=== PATIENT | female | born 1955 ===

== ENCOUNTER 2017-02-04 17:15 | Emergency (ER) | payer MEDICAID, OTHER ==
[2017-02-04 17:24] VITALS: PULSE 82; O2SAT 98
--- NOTE | 2017-02-04 17:47 | C.PDOC ---
History Of Present Illness 61F c/o headache and "dizziness" for the last 5 days, constant for 3 days. dizziness she says is "spinning" sensation worse with getting up and walking. she has had similar sx in the past which she attributed to high BP. Time Seen by Provider: 02/04/17 17:39 Chief Complaint (Nursing): High Blood Pressure Past Medical History Vital Signs: Last Vital Signs Temp 98.7 F 02/04/17 19:07 Pulse 82 02/04/17 19:07 Resp 18 02/04/17 19:07 BP 128/73 02/04/17 19:07 Pulse Ox 98 02/04/17 19:07 - Medical History PMH: Hyperlipidemia - [facility] Procedures IRRIGATION OF EAR (07/13/14) Family History: States: Other Other Family History: nc - Social History Hx Tobacco Use: No Hx Alcohol Use: No Hx Substance Use: No - Immunization History Hx Tetanus Toxoid Vaccination: No Hx Influenza Vaccination: No Hx Pneumococcal Vaccination: No Review Of Systems Constitutional: Negative for: Fever, Chills, Weakness, Malaise Eyes: Negative for: Vision Change ENT: Positive for: Other (no hearing change) Cardiovascular: Negative for: Chest Pain Respiratory: Negative for: Cough, Shortness of Breath Gastrointestinal: Positive for: Nausea, Vomiting. Negative for: Abdominal Pain Genitourinary: Negative for: Dysuria Neurological: Positive for: Headache. Negative for: Weakness, Numbness, Change in Speech, Confusion, Seizures, Altered Mental Status Physical Exam - Physical Exam Appears: Well, Non-toxic, No Acute Distress Skin: Warm, Dry Head: Atraumatic Eye(s): bilateral: PERRL, EOMI Nose: No Epistaxis Oral Mucosa: Moist Tongue: No Swelling Neck: Normal ROM Cardiovascular: Rhythm Regular, No Murmur Respiratory: No Decreased Breath Sounds, No Accessory Muscle Use, No Rales, No Rhonchi, No Wheezing Gastrointestinal/Abdominal: Soft, No Tenderness Extremity: No Swelling Pulses: Left Radial: Normal, Right Radial: Normal Neurological/Psych: Oriented x3, Normal Cranial Nerves, No Cerebellar Signs, Normal Motor, Normal Sensation, Other (no focal deficits) Gait: Steady ED Course And Treatment - Laboratory Results Result Diagrams: 02/04/17 18:15 02/04/17 18:15 O2 Sat by Pulse Oximetry: 98 Medical Decision Making Medical Decision Makin disc w pmd Dr Hernandez who rec follow up with him in his office on 1851 pt resting quietly no distress. reports feeling much better. she is comfortable w plan for dc and close follow up on and will return if worse. cxr- nad ecg- nsr 78, nl axis, no acute ischemia PROCEDURE: CT HEAD WITHOUT CONTRAST. HISTORY: headache COMPARISON: None available. TECHNIQUE: Axial computed tomography images were obtained through the head/brain without intravenous contrast. Radiation dose: Total exam DLP = 885.31 mGy-cm. This CT exam was performed using one or more of the following dose reduction techniques: Automated exposure control, adjustment of the mA and/or kV according to patient size, and/or use of iterative reconstruction technique. FINDINGS: HEMORRHAGE: No intracranial hemorrhage. BRAIN: No mass effect or edema. No atrophy or chronic microvascular ischemic changes. VENTRICLES: Unremarkable. No hydrocephalus. CALVARIUM: Unremarkable. PARANASAL SINUSES: Unremarkable as visualized. No significant inflammatory changes. MASTOID AIR CELLS: Unremarkable as visualized. No inflammatory changes. OTHER FINDINGS: None. IMPRESSION: No evidence of acute intracranial hemorrhage or acute pathology in the brain. Disposition - Disposition Referrals: Romeo Hernandez MD [Staff Provider] - Disposition: HOME/ ROUTINE Disposition Time: 18:57 Condition: IMPROVED Additional Instructions: Please follow up with your doctor on Tuesday. Return to the ER for any worsening symptoms or for any other concerns. Prescriptions: Meclizine [Antivert] 12.5 mg PO Q12H PRN #12 tab PRN Reason: vertigo Instructions: Vertigo (ED) Forms: Gen Discharge Inst Kinyarwanda Print Language: MOSOTHO - Clinical Impression Clinical Impression: Vertigo, Headache Physician Patient Turnover Patient Signed Over To: Andrei Roy Handoff Comments: f/u wrkup results
[2017-02-04] MEDS ORDERED: DiphenhydrAMINE 50 mg/ml Inj IVP STA (18:11)
[2017-02-04] MEDS ORDERED: DiphenhydrAMINE 50 mg/ml Inj ONE (18:18)
[2017-02-04 18:19] LABS: BASO # 0.1 K/uL (0.0-0.2); BASO % 1.1 % (0.0-2.0); EOS # 0.3 K/uL (0.0-0.7); HEMATOCRIT 40.3 % (34.0-47.0); LYMPH # 3.7 K/uL (1.0-4.3); LYMPH % 30.3 % (20.0-40.0); MEAN CELL VOLUME 82.1 fL (81.0-99.0); MEAN CORPUSCULAR HEMOGLOBIN 26.6 pg (27.0-31.0); MEAN CORPUSCULAR HGB CONC 32.4 g/dL (33.0-37.0); MEAN PLATELET VOLUME 8.2 fL (7.2-11.7); MONO # 0.9 K/uL (0.0-0.8); MONO % 7.6 % (0.0-10.0); WHITE BLOOD COUNT 12.4 K/uL (4.8-10.8)
[2017-02-04 18:27] LABS: CHLORIDE 98 mmol/L (98-107); SODIUM 136 mmol/L (132-148)
[2017-02-04 18:28] LABS: POTASSIUM 5.1 mmol/L (3.6-5.2)
[2017-02-04 18:30] LABS: ALB/GLOB RATIO 1.1 (1.0-2.1); ALKALINE PHOSPHATASE 93 U/L (38-126); ALT/SGPT 15 U/L (9-52); AST/SGOT 51 U/L (14-36); BILIRUBIN,TOTAL 1.3 mg/dL (0.2-1.3); BLOOD UREA NITROGEN 16 mg/dL (7-17); CARBON DIOXIDE 28 mmol/L (22-30); GFR AFRICAN-AMERICAN > 60; GLUCOSE,RANDOM 98 mg/dL (65-105); TOTAL PROTEIN 8.1 g/dL (6.3-8.3)
[2017-02-04 18:31] LABS: CALCIUM 8.4 mg/dl (8.6-10.4)
--- NOTE | 2017-02-04 18:46 | CT ---
PROCEDURE: CT HEAD WITHOUT CONTRAST. HISTORY: headache COMPARISON: None available. TECHNIQUE: Axial computed tomography images were obtained through the head/brain without intravenous contrast. Radiation dose: Total exam DLP = 885.31 mGy-cm. This CT exam was performed using one or more of the following dose reduction techniques: Automated exposure control, adjustment of the mA and/or kV according to patient size, and/or use of iterative reconstruction technique. FINDINGS: HEMORRHAGE: No intracranial hemorrhage. BRAIN: No mass effect or edema. No atrophy or chronic microvascular ischemic changes. VENTRICLES: Unremarkable. No hydrocephalus. CALVARIUM: Unremarkable. PARANASAL SINUSES: Unremarkable as visualized. No significant inflammatory changes. MASTOID AIR CELLS: Unremarkable as visualized. No inflammatory changes. OTHER FINDINGS: None. IMPRESSION: No evidence of acute intracranial hemorrhage or acute pathology in the brain.
--- NOTE | 2017-02-04 18:58 | RAD ---
HISTORY: Dizziness. Portable study 18:22. COMPARISON: 11/01/2015. FINDINGS: LUNGS: No active pulmonary disease. PLEURA: No significant pleural effusion identified, no pneumothorax apparent. CARDIOVASCULAR: No radiographic findings to suggest acute or significant cardiovascular disease. OSSEOUS STRUCTURES: No significant abnormalities. VISUALIZED UPPER ABDOMEN: Normal. OTHER FINDINGS: None. IMPRESSION: No active disease. No significant interval change compared to the prior examination(s).
[2017-02-04 19:08] VITALS: BP 128/73; RESP 18; TEMP 98.7
--- NOTE | 2017-02-08 12:51 | CARD ---
APPROVED REPORT EKG Measurement Heart [id number] <Conclusion> Normal sinus rhythm Normal ECG
== END 2017-02-04 19:00 | disposition home or self-care (01) ==
LOC: C.ER 17:15
DX: R42 Dizziness and giddiness (principal); R51 Headache
CPT/HCPCS: 70450; 71010; 80053; 84484; 85025; 93005; 96374; 96375; 99285; J1200; J2765

== ENCOUNTER 2018-11-27 08:56 | Outpatient (CLI) | payer OTHER | END 2018-11-27 08:57 | disposition home or self-care (01) | LOC: C.LAB 08:56 | DX: Z68.31 Body mass index [BMI] 31.0-31.9, adult (principal); Z13.9 Encounter for screening, unspecified ==

== ENCOUNTER 2018-12-05 09:29 | Outpatient (CLI) | payer OTHER | END 2018-12-05 09:30 | disposition home or self-care (01) | LOC: C.MAMMO 09:30 ==